=== PATIENT | male | born 1985 | race Caucasian/White ===

== ENCOUNTER 2019-01-22 02:37 | Emergency (ER) | payer SELFPAY ==
[~2019-01-22] VITALS: Ht 162.6 cm; Wt 66.0 kg
[2019-01-22 03:00] VITALS: BP 102/58
== END 2019-01-22 04:39 | disposition left against medical advice (07) ==
LOC: ER 02:37
DX: S61.219A Laceration without foreign body of unspecified finger without damage to nail, initial encounter (principal); Z53.21 Procedure and treatment not carried out due to patient leaving prior to being seen by health care provider; X58.XXXA Exposure to other specified factors, initial encounter; Y93.89 Activity, other specified; Y92.89 Other specified places as the place of occurrence of the external cause; Y99.8 Other external cause status